=== PATIENT | female | born 1960 | race American Indian/Alaskan Native ===

== ENCOUNTER 2019-05-22 08:29 | Emergency (ER) | payer BC ==
--- NOTE | 2019-05-22 11:15 | Emergency Department Report ---
ED Headache HPI - General Chief Complaint: Headache Stated Complaint: RT SIDE RASTAFARI PAIN Time Seen by Provider: 05/22/19 11:04 Source: patient - History of Present Illness Initial Comments: Patient is 59 years old female with history of hypertension. Patient presented to the ER complaining of 3 day history of headache, right temporal area. Patient describes her headache as throbbing, constant. Patient denied any weakness, numbness or tingling sensation. No neck pain. Patient also denied any fever or chills. Patient also complaining of sinus congestion. Quality: moderate Head Injury Location: frontal Recent Head Trauma: no recent headache/trauma Associated Symptoms: denies symptoms Allergies/Adverse Reactions: Allergies No Known Allergies Allergy (Unverified 05/22/19 08:41) ED Review of Systems ROS: Stated complaint: RT SIDE RASTAFARI PAIN Other details as noted in HPI Comment: All other systems reviewed and negative Constitutional: denies: chills, fever Respiratory: denies: cough, orthopnea, shortness of breath, SOB with exertion, SOB at rest, wheezing Cardiovascular: denies: chest pain, palpitations Gastrointestinal: denies: abdominal pain, nausea, vomiting Musculoskeletal: denies: back pain Neurological: headache. denies: weakness, numbness, paresthesias, confusion, abnormal gait ED Past Medical Hx - Past Medical History Previous Medical History?: Yes Hx Hypertension: Yes - Surgical History Past Surgical History?: Yes Additional Surgical History: Left arm fx repair - Social History Smoking Status: Never Smoker Substance Use Type: Alcohol, Prescribed ED Physical Exam - General Limitations: No Limitations General appearance: alert, in no apparent distress - Head Head exam: Present: atraumatic, normocephalic, normal inspection - Eye Eye exam: Present: normal appearance, PERRL - ENT ENT exam: Present: normal exam, normal orophraynx, mucous membranes moist - Neck Neck exam: Present: normal inspection, full ROM. Absent: tenderness, meningismus, lymphadenopathy, thyromegaly - Respiratory Respiratory exam: Present: normal lung sounds bilaterally. Absent: respiratory distress, wheezes, rales, rhonchi, chest wall tenderness, accessory muscle use, decreased breath sounds, prolonged expiratory - Cardiovascular Cardiovascular Exam: Present: regular rate, normal rhythm, normal heart sounds - GI/Abdominal GI/Abdominal exam: Present: soft, normal bowel sounds. Absent: distended, tenderness, guarding, rebound, rigid, organomegaly, mass, bruit, pulsatile mass, hernia - Extremities Exam Extremities exam: Present: normal inspection, full ROM, normal capillary refill. Absent: tenderness, pedal edema, joint swelling, calf tenderness - Back Exam Back exam: Present: normal inspection, full ROM. Absent: CVA tenderness (R), CVA tenderness (L), muscle spasm, paraspinal tenderness, vertebral tenderness, rash noted - Neurological Exam Neurological exam: Present: alert, oriented X3, CN II-XII intact - Psychiatric Psychiatric exam: Present: normal mood - Skin Skin exam: Present: warm, intact, normal color ED Course Vital Signs 05/22/19 05/22/19 08:42 12:00 Temperature 98.4 F Pulse Rate 81 18 L Respiratory 18 18 Rate Blood Pressure 183/102 Blood Pressure 170/98 [Left] O2 Sat by Pulse 95 98 Oximetry ED Medical Decision Making - Lab Data Result diagrams: 05/22/19 11:22 05/22/19 11:22 - Radiology Data Radiology results: report reviewed - Medical Decision Making Patient is 59 years old female with history of hypertension. Patient presented to the ER complaining of 3 day history of headache, right temporal area. Patient describes her headache as throbbing, constant. Patient denied any weakness, numbness or tingling sensation. No neck pain. Patient also denied any fever or chills. Patient also complaining of sinus congestion. Labs reviewed and is unremarkable. CT brain is negative for acute finding. Patient headache is most likely a combination of elevated blood pressure and sinusitis. Patient given prescription for Augmentin, Flonase, tramadol and Zofran and advised to follow-up with her primary care physician in the next 2-3 days and to return to the ER if symptoms are not improved. Critical care attestation.: If time is entered above; I have spent that time in minutes in the direct care of this critically ill patient, excluding procedure time. ED Disposition Clinical Impression: Headache, Sinusitis, Hypertension Disposition: TO HOME OR SELFCARE Is pt being admited?: No Condition: Stable Instructions: Hypertension (ED), Acute Bacterial Rhinosinusitis (ED), Acute Headache (ED) Referrals: PRIMARY CARE, [Referring] - 3-5 Days
[2019-05-22 11:55] LABS: Basophils # (Auto) 0.1 K/mm3 (0.0-0.1); Basophils % (Auto) 0.8 % (0.0-1.8); Eosinophils # (Auto) 0.4 K/mm3 (0.0-0.4); Eosinophils % (Auto) 5.7 % (0.0-4.3); Hematocrit 41.5 % (30.3-42.9); Hemoglobin 13.6 gm/dl (10.1-14.3); Lymphocytes # (Auto) 2.2 K/mm3 (1.2-5.4); Lymphocytes % (Auto) 30.2 % (13.4-35.0); Mean Corpuscular HGB Conc 33 % (30-34); Mean Corpuscular Volume 88 fl (79-97); Monocytes # (Auto) 0.5 K/mm3 (0.0-0.8); Monocytes % (Auto) 7.1 % (0.0-7.3); Platelet Count 278 K/mm3 (140-440); Red Blood Count 4.71 M/mm3 (3.65-5.03); Red Cell Distribution Width 15.2 % (13.2-15.2)
[2019-05-22 11:58] LABS: BUN/Creatinine Ratio 24; Blood Urea Nitrogen 17 mg/dL (7-17); Calcium 9.2 mg/dL (8.4-10.2); Hemolysis Index 19
--- NOTE | 2019-05-22 12:21 | Cat Scan Report ---
NONENHANCED CT SCAN OF THE HEAD: INDICATION / CLINICAL INFORMATION: 59 years Female; headache and elevated BP. TECHNIQUE: Routine CT head without contrast. All CT scans at this location are performed using CT dos e reduction for ALARA by means of automated exposure control. COMPARISON: None. FINDINGS: BRAIN / INTRACRANIAL CONTENTS: No acute hemorrhage, mass effect, midline shift, hydrocephalus, or ac [place], large territorial infarct. No chronic infarct or focal atrophy. Volume loss is seen in the cereb ellar vermis. Mammillary bodies are not seen well. No significant white matter abnormality. CRANIOCERVICAL JUNCTION: No significant abnormality. ORBITS: No significant abnormality of visualized orbits. SINUSES / MASTOIDS: Mucosal disease seen in the right posterior ethmoid air cells and left anterior e thmoid air cells. ADDITIONAL FINDINGS: None. IMPRESSION: No acute parenchymal lesion in the brain Signer Name: Ely Snider MD Signed: 05/22/2019 12:16 PM Workstation Name: [id number]
[2019-05-22 12:49] VITALS: BP 157/91
== END 2019-05-22 12:51 | disposition home or self-care (01) ==
LOC: ED 08:29
DX: J01.80 Other acute sinusitis (principal); I10 Essential (primary) hypertension
CPT/HCPCS: 36415; 70450; 80048; 85025